=== PATIENT | male | born 1975 | race Caucasian/White ===

== ENCOUNTER 2023-02-09 08:52 | Emergency (ER) | payer OTHER, SELFPAY ==
--- NOTE | ~2023-02-09 | XR_ITS ---
EXAMINATION: XR finger 5th RT min 2V DATE: 02/09/2023 09:13 INDICATION: Right hand fifth digit injury. TECHNIQUE: 3 views of right hand fifth digit were obtained. COMPARISON: None. FINDINGS: There is a comminuted fracture of tuft of fifth distal phalanx. The main distal fracture fr agment demonstrates 1 mm palmar displacement and 1 mm radial displacement. Joint spaces are normal. IMPRESSION: 1. Comminuted fracture of tuft of fifth distal phalanx. Reviewed, dictated and finalized at location E.
[2023-02-09 08:56] VITALS: BP 153/85; PULSE 94; RESP 16; TEMP 36.8; O2SAT 99
--- NOTE | 2023-02-09 09:22 | ED.WOUNDLAC ---
HPI - Wound/Laceration General Chief Complaint: Wound/Laceration Stated Complaint: right pinky injury Time Seen by Provider: 02/09/23 09:01 History of Present Illness HPI narrative: 48-year-old male reports for evaluation after a injury to his right fifth finger that occurred approximately 4 hours ago at work. Patient states he works at [employer] and was moving things around when a keg fell approximately 12 feet, landing on his right fifth finger. He reports with a laceration and mild bleeding and pain to the end of his fifth finger. Tetanus is not up-to-date. Denies other injuries or pain. He took a Sheldon 10 around 5 AM this morning which she is prescribed for back pain. Related Data Allergies Allergy/AdvReac Type Severity Reaction Status Date / Time Penicillins Allergy Unknown Verified 02/09/23 08:53 Review of Systems Review of Systems: CONSTITUTIONAL: Denies fever, chills EYES: Denies visual changes, redness, or discharge. ENT: Denies rhinorrhea, congestion, sore throat, or otalgia. CARDIOVASCULAR: Denies chest pain, palpitations, or edema. RESPIRATORY: Denies cough or dyspnea. GASTROINTESTINAL: Denies abdominal pain, nausea, vomiting, or diarrhea. GENITOURINARY: Denies dysuria or hematuria. SKIN: See HPI MUSCULOSKELETAL: See HPI NEUROLOGIC: Denies headache, numbness, dizziness, or weakness. PSYCHIATRIC: Denies anxiety or depression. Exam Narrative: GENERAL: Well-appearing, in no acute distress. HEAD: Normocephalic NECK: Supple. CHEST: No respiratory distress. Clear to auscultation, no adventitious breath sounds. HEART: Regular rate and rhythm. No murmur heard. Normal peripheral pulses. EXTREMITIES: RUE: Tenderness from the PIP to the distal finger. Subungual hematoma with blood oozing out of the proximal nail fold. The entirety of the nail is intact. The proximal nail has dislodge from the nail fold and is sitting superior to the nail fold. 2 small superficial abrasions proximal the nail on the dorsum of the finger. No other lacerations or abrasions. Full ROM of finger. No tenderness to remainder of finger or hands. Sensation intact. Cap refill <2. Radial pulse 2+. SKIN: See extremity exam NEURO: No focal deficits. Alert and oriented x3. PSYCH: Normal mood and affect. Course Vital Signs Vital signs: Vital Signs Temperature 98.2 F 02/09/23 08:56 Pulse Rate 94 02/09/23 08:56 Respiratory Rate 16 02/09/23 08:56 Blood Pressure 153/85 H 02/09/23 08:56 Pulse Oximetry 99 02/09/23 08:56 Oxygen Delivery Room Air 02/09/23 08:56 Temperature 98.2 F 02/09/23 08:56 Pulse Rate 94 02/09/23 08:56 Respiratory Rate 16 02/09/23 08:56 Blood Pressure 153/85 H 02/09/23 08:56 Pulse Oximetry 99 02/09/23 08:56 Oxygen Delivery Room Air 02/09/23 08:56 MDM - Wound/Laceration MDM Narrative Medical decision making narrative: 48-year-old male reports for evaluation for a right fifth finger injury that occurred approximately 4 hours prior to arrival. See HPI for further history. Vitals are stable other than mildly elevated blood pressure. Exam is significant for the above. He is neurovascularly intact. Tetanus updated. X-ray obtained showing a comminuted fracture of the tuft of the fifth distal phalanx. Digital block performed and finger irrigated extensively with normal saline. I was able to relocate the proximal nail into the proximal nail fold and applied 1 suture to stabilize it. No complications. The subungual hematoma adequately drained through the proximal dislodged nail prior to procedure. Wound dressed and patient placed in a finger splint. I discussed the case with hand surgeon, Dr. Soler, who agrees to have the patient follow up and to start Keflex. Patient updated and first dose of Keflex provided here. Strict ED return precautions discussed. He is agreeable with the plan and verbalized understanding. Discharged in stable condition. Medical Records Attesta
[2023-02-09] MEDS: TETANUS,DIPHTHERIA,AC PERTUSSIS ADULT (0.5 ML) BOOSTRIX IM (10:12)
[2023-02-09] MEDS: CEPHALEXIN 500 MG CAPSULE (10:12)
[2023-02-09] MEDS: LIDOCAINE HCL 1% LOCAL INJ 10 ML VIAL INFILTRATE (10:12)
== END 2023-02-09 10:16 | disposition home or self-care (01) ==
PROVIDERS: Emergency Provider Physician Assistant
DX: S62.636B Displaced fracture of distal phalanx of right little finger, initial encounter for open fracture (principal); Z23 Encounter for immunization; W20.8XXA Other cause of strike by thrown, projected or falling object, initial encounter
CPT/HCPCS: 29130; 73140; 90471; 90715; 99284; A9270

== ENCOUNTER 2023-04-01 06:46 | Emergency (ER) | payer OTHER, SELFPAY ==
[2023-04-01] VITALS (30 sets, daily range): BP systolic 70–136; BP diastolic 34–119; PULSE 66–85; RESP 11–26; TEMP 36.4; O2SAT 90–100
--- NOTE | ~2023-04-01 | CT_ITS ---
EXAMINATION: CT brain wo con DATE: 04/01/2023 08:37 INDICATION: Head injury. Sudden onset of dizziness. History of vertigo. TECHNIQUE: Computed tomography (CT) of the head was performed without intravenous contrast. The mA wa s adjusted according to patient size. Iterative reconstruction technique was employed. Exam dose: 60 5.33 mGy-cm total exam DLP. COMPARISON: None FINDINGS: Bilateral carotid siphon internal carotid artery calcifications are noted. No intracranial mass lesion or hemorrhage or cerebrovascular accident is detected. No midline shift or mass effect. Normal ventricular size. No subdural or epidural hematoma is detected. No fracture or bone destruction of the cranial vault. The mastoid air cells and included paranasal si nuses are unremarkable other than an opacified posterior right ethmoid air cell. IMPRESSION: Cerebral atherosclerosis No acute intracranial finding or skull fracture Reviewed, dictated and finalized at Location A. Reviewed, dictated and finalized at location A. ION ARTIST
--- NOTE | ~2023-04-01 | XR_ITS ---
XR ankle LT 2V DATE: 04/01/2023 08:08 INDICATION: Fracture dislocation of left ankle; post reduction examination TECHNIQUE: AP and crosstable lateral views COMPARISON: 03/29 prereduction left ankle radiographs FINDINGS: There is reduction of the lateral tibiotalar dislocation. There is near-anatomic position of the posterior malleolar fracture of the distal tibia. There is a comminuted fracture the mid shaft of the fibula with one cortical width anterolateral disp lacement. IMPRESSION: Reduction of lateral tibiotalar dislocation Posterior malleolar and mid fibular shaft fractures Reviewed, dictated and finalized at location A. REPAIRER
--- NOTE | ~2023-04-01 | XR_ITS ---
XR ankle LT 2V DATE: 04/01/2023 07:13 INDICATION: Left ankle deformity TECHNIQUE: 3 views COMPARISON: None FINDINGS: There is an anteriorly displaced apex anteriorly angulated comminuted fracture of the mid f ibular shaft with large intermediate butterfly fragment. There is lateral dislocation of the tibiotalar joint and fracture of the distal tibia including poste rior superiorly displaced posterior malleolar fracture. IMPRESSION: Comminuted fracture of midshaft of fibula with anterior displacement and apex anterior an gulation Lateral dislocation at the tibiotalar joint Superiorly displaced posterior malleolar fracture Reviewed, dictated and finalized at location A. H REPAIR PERSON IMPRESSION: Comminuted fracture of midshaft of fibula with anterior displacemen t and apex anterior angulation Lateral dislocation at the tibiotalar joint Superiorly displaced posterior malleolar fracture
--- NOTE | ~2023-04-01 | XR_ITS ---
XR tibia fibula LT 2V DATE: 04/01/2023 08:08 INDICATION: Postoperative reduction examination TECHNIQUE: AP and lateral views COMPARISON: 04/01/2023 left ankle prereduction radiographs FINDINGS: There is a comminuted fracture of the midshaft of the fibula with one cortical width or les s anterolateral displacement. There is reduction of the lateral tibiotalar dislocation. There is an approximately 4.5 mm superiorly displaced posterior malleolar distal tibial fracture. IMPRESSION: Incomplete reduction of lateral tibiotalar dislocation Comminuted mid shaft fracture fibula with minimal displacement or angulation 4 mm superiorly displaced posterior malleolar distal tibial fracture Reviewed, dictated and finalized at location A. OR ENGINEERING TECHNICIAN
--- NOTE | 2023-04-01 06:48 | ECG_ITS ---
Measurements Intervals [place] Rate: 78 P: 40 TX: 160 QRS: 24 QRSD: 98 T: 18 QT: 361 QTc: 413 Interpretive Statements SINUS RHYTHM POSSIBLE RIGHT VENTRICULAR CONDUCTION DELAY [RSR (QR) IN V1/V2] NO PREVIOUS ECG AVAILABLE FOR COMPARISON Electronically Signed On 04-01-2023 9:09:58 GREEN BUILDING ARCHITECT by Michelle Campbell M.D.
--- NOTE | 2023-04-01 06:49 | ED.SYNCOPE ---
HPI - Syncope General Chief Complaint: Syncope <Gregg Hardin MD - Last Filed: 04/06/23 07:09> Stated Complaint: Syncopal, ankle deformity <Gregg Hardin MD - Last Filed: 04/06/23 07:09> Time Seen by Provider: 04/01/23 06:48 <Gregg Hardin MD - Last Filed: 04/06/23 07:09> Source: patient, EMS and RN notes reviewed <Gina Rendon MD - Last Filed: 04/01/23 17:05> Mode of arrival: EMS <Gina Rendon MD - Last Filed: 04/01/23 17:05> History of Present Illness HPI narrative: 48-year-old male present to the emergency department for evaluation after having a syncopal episode and injuring his left ankle. Patient was at work when he had onset of this single episode. Patient did fall strike his head and injured his left ankle. <Gregg Hardin MD - Last Filed: 04/06/23 07:09> 48-year-old male present to the emergency department for evaluation after having dizziness and injuring his left ankle. Patient was at work when he states he stood up and this caused him to get dizzy. He states he had some vertigo and this caused him to fall. Patient did fall striking his head but he denies LOC, and injured his left ankle. He has left ankle deformity. He denies associated chest pain, shortness of breath, nausea, vomiting, diarrhea, abdominal pain. HE has mild headache from striking his head. HE denies dizziness at this time. <Gina Rendon MD - Last Filed: 04/01/23 17:05> Related Data Allergies/Adverse Reactions: Allergies Allergy/AdvReac Type Severity Reaction Status Date / Time Penicillins Allergy Unknown Verified 03/17/23 08:33 <Gregg Hardin MD - Last Filed: 04/06/23 07:09> Review of Systems Constitutional: Constitutional: Denies weakness <Gina Rendon MD - Last Filed: 04/01/23 17:05> Cardiovascular: Cardiovascular: Denies syncope, Denies rapid heart rate, Denies irregular heart rhythm, Denies leg edema and Denies dyspnea <Gina Rendon MD - Last Filed: 04/01/23 17:05> Respiratory: Respiratory: Denies chest congestion, Denies hemoptysis, Denies excessive phlegm production and Denies dyspnea <Gina Rendon MD - Last Filed: 04/01/23 17:05> Gastrointestinal: Gastrointestinal: Denies abdominal pain, Denies hematochezia, Denies diarrhea and Denies vomiting <Gina Rendon MD - Last Filed: 04/01/23 17:05> Genitourinary: Genitourinary: Denies hematuria, Denies dysuria, Denies penile discharge and Denies testicular pain <Gina Rendon MD - Last Filed: 04/01/23 17:05> Musculoskeletal: Musculoskeletal: Reports arthralgias (left ankle), Reports joint swelling, Denies loss of height and Denies muscle weakness <Gina Rendon MD - Last Filed: 04/01/23 17:05> Neurologic: Reports dizziness, Denies syncope, Reports headache(s), Denies focal weakness and Denies weakness <Gina Rendon MD - Last Filed: 04/01/23 17:05> [facility] Past Medical History Medical History: Medical History (Updated 04/02/23 @ 00:00 by Hira Helms) Chronic pain syndrome Diabetes mellitus Hypertension Sleep apnea <Gregg Hardin MD - Last Filed: 04/06/23 07:09> Surgical History Surgical History: Surgical History (Updated 04/01/23 @ 09:40 by Gina Rendon MD) H/O removal of cyst <Gregg Hardin MD - Last Filed: 04/06/23 07:09> Social History Social History: Social History Smoking status: Never smoker <Gregg Hardin MD - Last Filed: 04/06/23 07:09> Exam Narrative: APPEARANCE: Pale and diaphoretic upon arrival HEAD: normocephalic, atraumatic. EYES: PERRLA/EOMI, conjunctivae clear. NOSE: Normal no drainage THROAT: Pharynx clear, no exudate. NECK: Supple. No adenopathy, no masses. RESPIRATORY: Airway patent, respirations nonlabored. Clear to auscultation bilaterally, no rales, rhonchi, wheezing. CARDIOVASCULAR: Regular rate and rhythm without murmurs rubs or gal
[2023-04-01 07:02] LABS: Glucose Point of Care 183 mg/dl (65-105)
[2023-04-01 07:03] LABS: Basophils Absolute Auto 0.1 K/mm3 (0.0-0.1); Basophils Percent Auto 0.5 % (0.2-1.2); Eosinophils Absolute Auto 0.2 K/mm3 (0-0.3); Eosinophils Percent Auto 0.9 % (0-4.4); Hematocrit 40.2 % (42.0-52.0); Hemoglobin 13.3 g/dL (14.0-18.0); Immature Granulocyte Absolute 0.11 K/mm3 (0.00-0.031); Immature Granulocyte Percent A 0.6 % (0-0.5); Lymphocytes Absolute Auto 1.43 K/mm3 (0.9-3.2); Lymphocytes Percent Auto 8.2 % (18.3-44.2); Mean Corpuscular HGB Conc 33.1 g/dl (32-36); Mean Corpuscular Hemoglobin 27.9 pg (26-34); Mean Corpuscular Volume 84.3 fl (80-100); Mean Platelet Volume 9.4 fl (7.4-10.4); Monocytes Percent Auto 5.7 % (2.6-8.5); Neutrophils Absolute Auto 14.6 K/mm3 (1.3-6.7); Neutrophils Percent Auto 84.1 % (45.5-73.1); Platelet Count Result 288 k/mm3 (150-375); Red Blood Count 4.77 M/mm3 (4.6-6.20); Red Cell Distribution Width 13.8 % (11.5-14.5); White Blood Count 17.4 K/mm3 (4.5-10.0)
[2023-04-01] MEDS: SODIUM CHLORIDE 0.9% IV 1,000 ML 999 ML ×2 (07:03→08:03)
[2023-04-01 07:45] LABS: Alanine Aminotransferase 78 U/L (6-50); Albumin Level 4.2 g/dL (3.5-5.1); Alkaline Phosphatase 73 U/L (38-126); Anion Gap 13 mmol/L (8-16); Aspartate Amino Transferase 47 U/L (17-59); Bilirubin,Total 0.6 mg/dL (0.2-1.3); Blood Urea Nitrogen 28 mg/dL (9-20); Calcium 9.3 mg/dL (8.4-10.2); Carbon Dioxide 21 mmol/L (22-30); Chloride 102 mmol/L (98-107); Estimated CRCL calculation 50 ml/min; Estimated Glomerular Filt Rate 27; Glucose 176 mg/dL (65-110); Potassium 4.3 mmol/L (3.4-5.0); Sodium 136 mmol/L (137-145)
[2023-04-01 07:49] LABS: Influenza A QL RT-PCR Negative (Negative); Influenza B QL RT-PCR Negative (Negative); RSV RNA, RT-PCR Negative (Negative); SARS-CoV-2 RNA PCR Negative (Negative)
--- NOTE | 2023-04-01 08:55 | PC.NURSE ---
Left reduced by EDP without sedation. Left leg posterior splint placed on by verbal order from EDP.
[2023-04-01] MEDS: HYDROcodone/acetaminophen (*CRX) 10-325 MG TABLET 1 TAB PO (10:04)
== END 2023-04-01 10:15 | disposition left against medical advice (07) ==
PROVIDERS: Emergency Medicine; Emergency Provider General Practice
DX: S82.402A Unspecified fracture of shaft of left fibula, initial encounter for closed fracture (principal); S82.892A Other fracture of left lower leg, initial encounter for closed fracture; N17.9 Acute kidney failure, unspecified; Z20.822 Contact with and (suspected) exposure to COVID-19; I10 Essential (primary) hypertension; E11.9 Type 2 diabetes mellitus without complications; G47.30 Sleep apnea, unspecified; W19.XXXA Unspecified fall, initial encounter
CPT/HCPCS: 27768; 36415; 70450; 73590; 73600; 80053; 82948; 85025; 87637; 93005; 99285; A9270; J2704; J7030

== ENCOUNTER 2023-05-22 08:25 | Emergency (ER) | payer OTHER, SELFPAY ==
[2023-05-22 08:28] VITALS: BP 190/102; PULSE 88; RESP 16; TEMP 36.4; O2SAT 100
--- NOTE | 2023-05-22 12:26 | ED.WOUNDLAC ---
HPI - Wound/Laceration General Chief Complaint: Wound/Laceration Stated Complaint: L leg post op problem? or spider bite? Time Seen by Provider: 05/22/23 12:00 History of Present Illness HPI narrative: 48-year-old male presenting with possible spider bite. Patient states that he had surgery on his left ankle about 6 weeks ago. He has been healing well until the last several days he developed slightly worsening swelling as well as some redness. States that he has some scabs on the lateral aspect of the ankle, he is unsure if these were surgical incisions. His fiancee became concerned that they looked like a brown recluse bite. He called his surgeon who started him on Keflex. States that he has been taking this for the last 2 days and the swelling and redness has started to improve. States that there has been a little bit of white cloudy drainage. He denies fevers or chills, nausea vomiting, or other systemic symptoms. No numbness or weakness. Related Data Allergies Allergy/AdvReac Type Severity Reaction Status Date / Time Penicillins Allergy Unknown Verified 05/22/23 08:32 Review of Systems Review of Systems: All systems reviewed & are unremarkable except as noted in HPI and below PMFSH Past Medical History Medical History Chronic pain syndrome Diabetes mellitus Hypertension Sleep apnea Surgical History Surgical History H/O removal of cyst Family History Family History Unknown Hypertension Depression Diabetes mellitus Neuropathy Arthritis Social History Social History Smoking status: Current every day smoker Tobacco type: e-cigarettes/vaping Alcohol intake: never Gender identity (if verbalized by the patient): Male Exam Narrative: GENERAL: Nontoxic, no acute distress, pleasant cooperative HEAD: Normocephalic, atraumatic. EYES: PERRLA and EOMI. ENT: Grossly unremarkable NECK: Supple. CHEST: No respiratory distress. HEART: Regular rate and rhythm EXTREMITIES: Normal range of motion. SKIN: Warm, dry. Left ankle with two small scabs laterally with mild erythema extending to upper foot, no fluctuance or induration, no drainage, DP pulses 2+ NEURO: No focal deficits. Alert and oriented x3. PSYCH: Normal mood and affect. Course Vital Signs Vital signs: Vital Signs Temperature 97.6 F 05/22/23 08:28 Pulse Rate 88 05/22/23 08:28 Respiratory Rate 16 05/22/23 08:28 Blood Pressure 190/102 H 05/22/23 08:28 Pulse Oximetry 100 05/22/23 08:28 Temperature 97.6 F 05/22/23 08:28 Pulse Rate 88 05/22/23 08:28 Respiratory Rate 16 05/22/23 08:28 Blood Pressure 190/102 H 05/22/23 08:28 Pulse Oximetry 100 05/22/23 08:28 MDM - Wound/Laceration MDM Narrative Medical decision making narrative: 48-year-old male presenting with redness and swelling in his left ankle. Vitals stable. Exam remarkable for the above. No evidence of abscess or deeper infection. Consistent with cellulitis. States that he has had some improvement after starting the Keflex. States that he did have some white cloudy drainage over the weekend. Will add additional coverage to doxycycline. Patient sees his surgeon in 2 days, advised that he keep this appointment. Appropriate return precautions given. Discharged in stable condition. Differential Diagnosis Differential diagnosis: Likely other (Cellulitis, abscess, insect bite) Medical Records Attestation: I reviewed the patient's medical records. Critical Care Time Critical Care Time Critical Care Time: No Discharge Plan Discharge Clinical Impression: Cellulitis Patient Disposition: Home, Self-Care Condition: Stable Instructions: Antibiotic Form, Cellulitis (ED) Additional Instructions
[2023-05-22] MEDS: DOXYCYCLINE HYCLATE 100 MG TABLET PO (12:34)
== END 2023-05-22 12:40 | disposition home or self-care (01) ==
PROVIDERS: Emergency Provider Emergency Medicine
DX: L03.116 Cellulitis of left lower limb (principal); E11.9 Type 2 diabetes mellitus without complications; I10 Essential (primary) hypertension; G47.30 Sleep apnea, unspecified; G89.4 Chronic pain syndrome; F17.290 Nicotine dependence, other tobacco product, uncomplicated
CPT/HCPCS: 99283; A9270

== ENCOUNTER 2023-07-14 15:50 | Emergency (ER) | payer OTHER, SELFPAY ==
--- NOTE | ~2023-07-14 | XR_ITS ---
EXAM: XR ankle LT min 3V DATE: 07/14/2023 16:45 HISTORY: infection post op r/o osteomyelitis . COMPARISON: 04/06/2023. FINDINGS: Normal mineralization. Screw and plate fixation of the syndesmosis and distal fibula. The 2 superior syndesmotic screws are fractured. 4 mm hardware lucency about the tibial component of the second syndesmotic screw (numbered superior to inferior). Periosteal elevation at the tip of the thir d syndesmotic screw. 3 mm perihilar hardware lucency at the inferior syndesmotic screw, with minimal periosteal elevation at the screw tip. No new acute fracture. Comminuted distal fibular fracture, por tions of which are unfused. Medial malleolus avulsion fracture fragments. Medial gutter widening. No lytic or blastic lesion. Moderate degenerative change at the tibiotalar joint and midfoot. Achilles e nthesopathy. No erosion or periosteal change. Soft tissues within normal limits. IMPRESSION: Screw and plate fixation of the distal fibula and syndesmosis with fractured superior syn desmotic screws. Multiple syndesmotic screws demonstrate periosteal changes and perihilar hardware isabell cencies as can be seen with loosening or infection. Persistent medial gutter widening suggestive of ligamentous injury. Questionable fusion of the comminuted distal fibular fracture. Reviewed, dictated and finalized at location K. IMPRESSION: Screw and plate fixation of the distal fibula and syndesmosis with fractured superior syndesmotic screws. Multiple syndesmotic screws demonstrate periosteal changes and perihilar hardware lucencies as can be seen with looseni ng or infection. Persistent medial gutter widening suggestive of ligamentous injury. Questionable fusion of the comminuted distal fibular fracture.
[2023-07-14 15:54] VITALS: BP 143/83; PULSE 100; RESP 18; TEMP 36.9; O2SAT 100
--- NOTE | 2023-07-14 15:56 | ED.GENADULT ---
HPI - General Adult General Chief complaint: Unspecified <Dave Hawley APRN - Last Filed: 07/14/23 16:15> Stated complaint: infection from surgery <Dave Hawley APRN - Last Filed: 07/14/23 16:15> Time Seen by Provider: 07/14/23 15:56 <Dave Hawley APRN - Last Filed: 07/14/23 16:15> Focused HPI: Lino is a 48-year-old male patient presenting to the emergency room today with complaints of possible infection and the left ankle. He reports he had a surgery completed on May [address] Bhatt at the [facility]-had screws placed and the left ankle for ankle dislocation fracture. Is having redness and drainage coming from the left lateral ankle today. Has been on doxycycline for approximately 2 and half weeks for a infection. States that it looks as though the infection is getting worse. Denies any fever, chills, or body aches. States he has had decrease in appetite and he has been having bloody diarrhea stools. Denies any abdominal pain but did have 1 vomiting episode at 10:00 a.m. this morning and did not have blood and his emesis at that time. Feels bloated. Is wearing a walking boot at the time of visit General: Well-developed, morbidly obese, in no apparent distress Head: Normocephalic, atraumatic. Cardio: Regular rate and rhythm, s1 and s2 normal, no murmur appreciated. Resp: Clear to auscultation bilaterally, no rhonchi, rales, wheezing or rubs. Abdomen: Soft, pliable, distended per patient, bowel sounds present in all quadrants, non-tender to palpation, no organomegly, no CVAT tenderness. Musculoskeletal: No deformity, redness and swelling noted to the left lateral ankle, lower surgical incision dehisced and bloody drainage noted over the inferior portion of the surgery incision, mild tender to palpation, erythema noted with palpation, grossly normal range of motion, muscle strength strong and equal, peripheral pulse strong, no edema, no cyanosis, normal gait and station Patient screened in triage and initial orders placed. Additional care and disposition to be based upon diagnostic testing and treatment. <Dave Hawley APRN - Last Filed: 07/14/23 16:15> Source: patient <Dave Hawley APRN - Last Filed: 07/14/23 16:15> Mode of arrival: ambulatory <Dave Hawley APRN - Last Filed: 07/14/23 16:15> Limitations: no limitations <Dave FloresmeenaWOON - Last Filed: 07/14/23 16:15> Related Data Allergies/adverse reactions: Allergies Allergy/AdvReac Type Severity Reaction Status Date / Time Penicillins Allergy Unknown Verified 05/22/23 08:32 <Dave FloresmeenaWOON - Last Filed: 07/14/23 16:15> [facility] Past Medical History Medical History: Medical History Chronic pain syndrome Diabetes mellitus Hypertension Sleep apnea <Dave Markmeena VOCATIONAL SERVICES SPECIALIST - Last Filed: 07/14/23 16:15> Surgical History Surgical History: Surgical History H/O removal of cyst <Dave Markmeena VOCATIONAL SERVICES SPECIALIST - Last Filed: 07/14/23 16:15> Family History Family History: Family History Unknown Hypertension Depression Diabetes mellitus Neuropathy Arthritis <Davetreasure Floresmeena VOCATIONAL SERVICES SPECIALIST - Last Filed: 07/14/23 16:15> Social History Social History: Social History Smoking status: Current every day smoker Tobacco type: e-cigarettes/vaping Alcohol intake: never Gender identity (if verbalized by the patient): Male <Dave Hawley VOCATIONAL SERVICES SPECIALIST - Last Filed: 07/14/23 16:15> Comments At the time of my signature, I reviewed and agree with the nursing past medical, surgical, social, and family history. There is no relevant family history pertinent to the patient complaint. <Cassandra Singer
[2023-07-14 16:30] LABS: Basophils Percent Auto 0.2 % (0.2-1.2); Eosinophils Absolute Auto 0.1 K/mm3 (0-0.3); Eosinophils Percent Auto 0.4 % (0-4.4); Hematocrit 37.4 % (42.0-52.0); Hemoglobin 12.6 g/dL (14.0-18.0); Immature Granulocyte Absolute 0.21 K/mm3 (0.00-0.031); Immature Granulocyte Percent A 1.3 % (0-0.5); Lymphocytes Absolute Auto 1.12 K/mm3 (0.9-3.2); Lymphocytes Percent Auto 6.9 % (18.3-44.2); Mean Corpuscular HGB Conc 33.7 g/dl (32-36); Mean Corpuscular Hemoglobin 26.4 pg (26-34); Mean Corpuscular Volume 78.4 fl (80-100); Mean Platelet Volume 9.7 fl (7.4-10.4); Monocytes Percent Auto 6.1 % (2.6-8.5); Neutrophils Absolute Auto 13.7 K/mm3 (1.3-6.7); Neutrophils Percent Auto 85.1 % (45.5-73.1); Platelet Count Result 331 k/mm3 (150-375); Red Blood Count 4.77 M/mm3 (4.6-6.20); Red Cell Distribution Width 13.1 % (11.5-14.5); White Blood Count 16.1 K/mm3 (4.5-10.0)
[2023-07-14 16:40] LABS: Lactic Acid Reflex 1.9 mmol/L (0.7-2.0)
[2023-07-14 16:41] LABS: INR 1.1; Prothrombin Time 14.7 Seconds (11.1-14.7)
[2023-07-14 16:42] LABS: Partial Thromboplastin Time 29.2 Seconds (22.3-36.8)
[2023-07-14 16:48] LABS: Alanine Aminotransferase 33 U/L (6-50); Albumin Level 4.1 g/dL (3.5-5.1); Alkaline Phosphatase 152 U/L (38-126); Anion Gap 13 mmol/L (4-12); Aspartate Amino Transferase 21 U/L (17-59); Bilirubin,Total 0.6 mg/dL (0.2-1.3); Blood Urea Nitrogen 29 mg/dL (9-20); Calcium 9.6 mg/dL (8.4-10.2); Carbon Dioxide 24 mmol/L (22-30); Chloride 88 mmol/L (98-107); Estimated CRCL calculation 131 ml/min; Estimated Glomerular Filt Rate > 60; Glucose 601 mg/dL (65-110); Potassium 4.4 mmol/L (3.4-5.0); Sodium 125 mmol/L (137-145)
[2023-07-14] MEDS: SODIUM CHLORIDE 0.9% IV 1,000 ML 999 ML IV CONT (17:33)
[2023-07-14 18:15] VITALS: BP 131/86; PULSE 91; RESP 18; O2SAT 100
[2023-07-14] MEDS: SODIUM CHLORIDE 0.9% IV 2,000 ML 999 ML IV CONT (18:57)
[2023-07-14] MEDS: ceFAZolin 2 GM/D5W 50 ML 2 GM/50 ML BAG IVPB (18:57)
--- NOTE | 2023-07-14 20:34 | PC.NURSE ---
pt declined 3rd liter of fluids as well as transportation to [facility] in [place], [place]. fluids were returned and antibiotics sent back to pharmacy. pt signed AMA form for declining transport.
[2023-07-14 20:37] VITALS: BP 143/89; PULSE 92; RESP 18; TEMP 37.2; O2SAT 100
== END 2023-07-14 20:35 | disposition short-term general hospital (02) ==
PROVIDERS: Nurse Practitioner Family; Emergency Provider Emergency Medicine
DX: T81.49XA Infection following a procedure, other surgical site, initial encounter (principal); E11.65 Type 2 diabetes mellitus with hyperglycemia; E66.01 Morbid (severe) obesity due to excess calories; Z68.41 Body mass index [BMI] 40.0-44.9, adult; I10 Essential (primary) hypertension; G47.30 Sleep apnea, unspecified; F17.290 Nicotine dependence, other tobacco product, uncomplicated
CPT/HCPCS: 36415; 73610; 80053; 83605; 85025; 85610; 85730; 86850; 86900; 86901; 87040; 87070; 87181; 87205; 96361; 96365; 99285; J0690; J7030

== ENCOUNTER 2024-01-30 15:17 | Emergency (ER) | payer OTHER, SELFPAY ==
--- NOTE | ~2024-01-30 | XR_ITS ---
HISTORY: injury COMPARISON: None TECHNIQUE: 3 views of the right foot FINDINGS: Acute comminuted minimally displaced fracture of the distal shafts of the second and third metatarsal s. Dorsal soft tissue swelling is present. Ossification of the insertion of the Achilles tendon is present. Calcaneal spur is noted IMPRESSION: Acute comminuted minimally displaced fracture of the distal shafts of the second and third metatarsal s with overlying soft tissue swelling, as detailed above. Reviewed, dictated and finalized at location A. IMPRESSION: Acute comminuted minimally displaced fracture of the distal shafts of the secon d and third metatarsals with overlying soft tissue swelling, as detailed above.
--- NOTE | ~2024-01-30 | XR_ITS ---
XR knee LT min 4V Ordering provider: Crista Garcia PA-C History: . left knee pain, fall . Comparison: None. FINDINGS: BONES: No acute fracture or dislocation. JOINT SPACES: Normal. SOFT TISSUES: Normal. IMPRESSION: No acute osseous abnormality left knee. Reviewed, dictated and finalized at location A.
[2024-01-30 15:21] VITALS: BP 177/84; PULSE 100; RESP 20; TEMP 36.4; O2SAT 100
--- NOTE | 2024-01-30 15:43 | ED.FALL ---
HPI - Fall General Chief Complaint: Fall Stated Complaint: fall, lE injuries Time Seen by Provider: 01/30/24 15:29 Source: patient Mode of arrival: wheelchair Limitations: no limitations History of Present Illness HPI Narrative: This is a 49 year old male that presents to the ER after an injury 2 days ago. Reports he got his foot caught in a wheelchair ramp. Reports this caused him to fall forward. He did not hit his head or lose consciousness. Reports right foot pain and swelling. Also reports left knee pain. Denies decreased ROM or numbness. Related Data Allergies Allergy/AdvReac Type Severity Reaction Status Date / Time Penicillins Allergy Unknown Verified 01/30/24 15:25 Review of Systems Review of Systems: CONSTITUTIONAL: Denies fever MUSCULOSKELETAL: Reports joint pain, and myalgia. NEUROLOGIC: Denies numbness, or weakness. All systems reviewed & are unremarkable except as noted in HPI and below PMFSH Past Medical History Medical History Chronic pain syndrome Diabetes mellitus Hypertension Sleep apnea Surgical History Surgical History H/O removal of cyst Family History Family History Unknown Hypertension Depression Diabetes mellitus Neuropathy Arthritis Social History Social History Smoking status: Current every day smoker Tobacco type: e-cigarettes/vaping Alcohol intake: never Gender identity (if verbalized by the patient): Male Exam Narrative: GENERAL: Well-appearing, well-nourished, and in no acute distress. HEAD: Normocephalic, atraumatic. EYES: EOMI. EXTREMITIES: Normal range of motion. No obvious deformity. Moderate edema about the right foot. Normal DP pulses. Normal sensation SKIN: Warm, dry, no rash. NEURO: No focal deficits. Alert and oriented x3. PSYCH: Normal mood and affect Course Course Emergency Course: Patient updated on his workup. Reports he has a orthopedics doctor he will follow up with Vital Signs Vital signs: Vital Signs Temperature 97.5 F L 01/30/24 15:21 Pulse Rate 100 01/30/24 15:21 Respiratory Rate 20 01/30/24 15:21 Blood Pressure 177/84 H 01/30/24 15:21 Pulse Oximetry 100 01/30/24 15:21 Oxygen Delivery Room Air 01/30/24 15:21 Temperature 97.5 F L 01/30/24 15:21 Pulse Rate 100 01/30/24 15:21 Respiratory Rate 20 01/30/24 15:21 Blood Pressure 177/84 H 01/30/24 15:21 Pulse Oximetry 100 01/30/24 15:21 Oxygen Delivery Room Air 01/30/24 15:21 Procedures Orthopedic Splinting/Casting Injury #1: Splinting/Casting Date: 01/30/24 Splinting/Casting Time: 17:34 Side: right Lower Extremity Injury Location: foot Lower Extremity Immobilizer: posterior splint Splint: customized in ED OCL: short leg Pre-Procedure Neuro Vascular Exam: normal Post-Procedure Neuro Vascular Exam: normal Other Orthopedic Equipment: other (patient has a wheel chair) MDM - Fall MDM Narrative Medical decision making narrative: Patient presents to the emergency department after a fall 2 days ago with right foot pain in left knee pain. Patient is neurologically intact. Right foot x-ray shows 2nd and 3rd metatarsal fractures. Left knee x-ray without acute osseous abnormalities. Patient placed in a short-leg posterior. Reports he has an orthopedics doctor he will follow-up with. He was given warnings to return to the ER Differential Diagnosis Differential diagnosis: Likely other ( knee sprain, foot fracture, ankle fracture) Imaging Data Radiologist's impression: ITS Impressions Foot X-Ray 01/30/24 16:13 IMPRESSION: Acute comminuted minimally displaced fracture of the distal shafts of the second and third metatarsals with overlyin
[2024-01-30] MEDS: HYDROcodone/acetaminophen (*CRX) 5-325 MG TABLET 1 TAB PO (15:46)
[2024-01-30] MEDS: KETOROLAC 30 MG/ML VIAL (*BKC) IM (16:53)
--- NOTE | 2024-01-30 17:40 | PC.NURSE ---
Report given to GARETH Menendez
[2024-01-30 18:25] VITALS: BP 143/69; PULSE 95; RESP 16; O2SAT 97
== END 2024-01-30 18:28 | disposition home or self-care (01) ==
PROVIDERS: Emergency Provider Physician Assistant
DX: S92.321A Displaced fracture of second metatarsal bone, right foot, initial encounter for closed fracture (principal); S92.331A Displaced fracture of third metatarsal bone, right foot, initial encounter for closed fracture; I10 Essential (primary) hypertension; E11.9 Type 2 diabetes mellitus without complications; G47.30 Sleep apnea, unspecified; G89.4 Chronic pain syndrome; F17.290 Nicotine dependence, other tobacco product, uncomplicated; W18.39XA Other fall on same level, initial encounter
CPT/HCPCS: 29515; 73564; 73630; 96372; 99284; A9270; J1885

== ENCOUNTER 2024-12-12 19:39 | Emergency (ER) | payer OTHER, SELFPAY ==
--- NOTE | ~2024-12-12 | CT_ITS ---
EXAMINATION: CT BRAIN W/O DATE: 12/12/2024 21:13 INDICATION: Status post fall. Head injury. TECHNIQUE: Computed tomography (CT) of the head was performed without intravenous contrast. The dose-length product was 605.33 mGy-cm. Automated exposure control and iterative reconstruction technique were employed. COMPARISON: No prior studies for comparison. FINDINGS: Normal brain parenchymal volume for age. Normal galicia-white differentiation. No acute intracranial hemorrhage, infarction, mass or mass effect. No ventriculomegaly or midline shift. Midline sagittal images demonstrate a normal corpus callosum, craniovertebral junction and sella turcica. Basilar cisterns are patent. Paranasal sinuses and mastoids are pneumatized. No depressed skull fractures. IMPRESSION: 1. No acute intracranial abnormality. Reviewed, dictated and finalized at location O.
--- NOTE | ~2024-12-12 | XR_ITS ---
XR chest 1V portable INDICATION: Chest pain TECHNIQUE: 2 view chest. FINDINGS: No prior studies for comparison. There is mild bilateral interstitial prominence and peribronchial cuffing. There is no focal consolidation, pleural effusion, or pneumothorax. The cardiomediastinal silhouette is normal. IMPRESSION: 1. Findings most consistent with bronchiolitis versus an atypical or viral pneumonia. Reviewed, dictated and finalized at location O. IMPRESSION: 1. Findings most consistent with bronchiolitis versus an atypical or viral pne tarahgalena.
[2024-12-12 19:58] VITALS: BP 117/93; PULSE 89; RESP 16; TEMP 36.3; O2SAT 93
--- NOTE | 2024-12-12 20:09 | ECG_ITS ---
Test Date: 2024-12-12 20:15:06 Measurements Intervals [place] Rate: 74 P: 47 IL: 143 QRS: 22 QRSD: 100 T: 20 QT: 349 QTc: 387 Interpretive Statements SINUS RHYTHM POSSIBLE RIGHT VENTRICULAR CONDUCTION DELAY [RSR (QR) IN V1/V2] No previous ECG available for comparison Electronically Signed On 12-13-2024 12:24:03 CDT by Phan Van M.D.
[2024-12-12 21:02] LABS: Hematocrit 41.3 % (42.0-52.0); Hemoglobin 12.6 g/dL (14.0-18.0); Immature Granulocyte Percent A 0.6 % (0-0.5); Lymphocytes Absolute Auto 1.47 K/mm3 (0.9-3.2); Mean Corpuscular HGB Conc 30.5 g/dl (32-36); Mean Corpuscular Hemoglobin 24.5 pg (26-34); Mean Corpuscular Volume 80.4 fl (80-100); Nucleated Red Blood Cells Absolute Auto 0.000 K/mm3 (0.0-0.012); Nucleated Red Blood Cells Perc 0.0 % (0.0-0.2); Platelet Count Result 291 k/mm3 (150-375); Red Blood Count 5.14 M/mm3 (4.6-6.20); White Blood Count 12.5 K/mm3 (4.5-10.0)
[2024-12-12 21:13] LABS: Alanine Aminotransferase 21 U/L (6-50); Albumin Level 3.8 g/dL (3.5-5.1); Alkaline Phosphatase 79 U/L (38-126); Anion Gap 8 mmol/L (4-12); Aspartate Amino Transferase 28 U/L (17-59); Bilirubin,Total 0.3 mg/dL (0.2-1.3); Blood Urea Nitrogen 58 mg/dL (9-20); Calcium 8.7 mg/dL (8.4-10.2); Carbon Dioxide 26 mmol/L (22-30); Chloride 103 mmol/L (98-107); Estimated CRCL calculation 40 ml/min; Estimated Glomerular Filt Rate 21; Glucose 121 mg/dL (65-110); Lipase 113 U/L (23-300); Magnesium 2.3 mg/dL (1.6-2.3); Potassium 4.7 mmol/L (3.4-5.0); Sodium 137 mmol/L (137-145); Total Protein 7.2 g/dL (6.3-8.2)
[2024-12-12 21:16] LABS: INR 1.1; Prothrombin Time 13.7 Seconds (11.1-14.7)
[2024-12-12 21:17] LABS: Partial Thromboplastin Time 33.1 Seconds (22.3-36.8)
[2024-12-12 21:25] LABS: Troponin I < 0.012 ng/mL (0.000-0.034)
--- NOTE | 2024-12-12 21:36 | ED_ITS ---
HPI - Fall General Chief Complaint: Fall Stated Complaint: severe muscle spasms, fell in parking lot Time Seen by Provider: 12/12/24 20:15 History of Present Illness HPI Narrative: Patient is a 49-year-old male who presents emergency department this evening complaining of muscle spasms. States that his symptoms started on Monday or Monday with the generalized weakness and muscle spasms. Patient states that him and his glue gold his symptoms and he was concerned for either a silent heart attack or stroke. He is denying any focal weakness, numbness and/or tingling. Denies any active chest pain or shortness of breath, any recent illness, fevers or chills. Denies any additional symptoms or concerns. Related Data Allergies Allergy/AdvReac Type Severity Reaction Status Date / Time Penicillins Allergy Unknown Verified 01/30/24 15:25 Review of Systems 2 Review of Systems: All systems are reviewed and are negative unless stated otherwise in the HPI. [facility] Past Medical History Medical History Chronic pain syndrome Diabetes mellitus Hypertension Sleep apnea Surgical History Surgical History H/O removal of cyst Family History Family History Unknown Hypertension Depression Diabetes mellitus Neuropathy Arthritis Social History Social History Smoking status: Current every day smoker Tobacco type: e-cigarettes/vaping Alcohol intake: never Gender identity (if verbalized by the patient): Male Exam 2 Narrative: General: Alert, awake, afebrile, in no acute distress. HEENT: PERRL, no rhinorrhea, no post nasal drip, oropharynx clear. Neck: Trachea midline, no JVD, no lymphadenopathy. Cardiovascular: Regular rate and rhythm, no murmurs, rubs or gallops, no peripheral edema. Respiratory: Clear to auscultation bilaterally, no tachypnea, no wheezing, no rhonchi, no rubs, no respiratory distress. Abdomen: Soft, nontender, nondistended, no rebound, no guarding, no peritoneal signs. Musculoskeletal: No joint swelling or deformity, normal muscle tone. Skin: No rashes or petechia, no signs of infection. Psychiatric: Alert and oriented, normal behavior and judgment for situation. Neurological: Alert and oriented to person, place, and time. Follows all commands. No focal deficits, speech is clear and fluent. Course Vital Signs Vital signs: Vital Signs Temperature 97.3 F L 12/12/24 19:58 Pulse Rate 89 12/12/24 19:58 Respiratory Rate 16 12/12/24 19:58 Blood Pressure 117/93 H 12/12/24 19:58 Pulse Oximetry 93 12/12/24 19:58 Temperature 97.3 F L 12/12/24 19:58 Pulse Rate 89 12/12/24 19:58 Respiratory Rate 16 12/12/24 19:58 Blood Pressure 117/93 H 12/12/24 19:58 Pulse Oximetry 93 12/12/24 19:58 MDM - Fall MDM Narrative Medical decision making narrative: The patient was evaluated by myself in the emergency department. History is obtained from patient who is an independent historian and physical exam was performed. External medical records were reviewed at this time. IV was established and pertinent tests were ordered. Patient was administered 1 L IV fluid bolus with normal saline. EKG was obtained which revealed sinus rhythm rate of 74 beats per minute, no evidence of acute ischemia. EKG was independently interpreted by me and is currently pending official cardiology read. Laboratory results obtained revealing acute kidney injury with BUN of 58 and a creatinine of 3.2. Patient has no history of chronic kidney disease, last documented creatinine was July of last year and was noted to be 1. Patient was informed of these findings at bedside. Patient confirms that he has not been drinking water and states that he has gone the last couple of days only drinking coffee and tea. Denies any flank pain, any abdominal pain, any nausea or vomiting. At this time patient was administered a 2nd IV fluid bolus with normal saline. Imaging studies obtained included CXR and a CT brain without IV contrast which was independently interpreted by me revealing: IMPRESSION: 1. Findings most consistent with bronchiolitis versus an atypical or viral pneumonia. 2. No acute intracranial abnormality. Differential diagnosis considerations include dehydration, acute kidney injury, electrolyte derangements, acute viral syndrome. Comorbidities impacting this visit include none. I have evaluated and discussed social determinants of health with the patient that could potentially impact subsequent diagnosis and treatment plans. On repeat assessment of the patient, reevaluation revealed that the patient is doing well and is in no acute distress. Patient symptoms have improved since he arrived to our emergency department. Repeat vital signs were all reviewed and noted to be stable. Differential diagnosis and treatment plan were discussed with the patient at bedside. At this time given the patient's elevated creatinine and his acute kidney injury I did recommend inpatient admission for IV hydration, however, patient review stating that he cannot take any time off of work and he needs to get to work. Patient understands the risks including worsening kidney function and kidney failure and states that he will increase his p.o. intake and follow-up with his PCP for repeat kidney function. Patient is sound of mine, alert tenderness to person, place, time and situation and capable of making his own medical decisions. He was informed that he will be signing out against medical advice. All questions were answered to the patient's satisfaction. Patient will follow up with his PCP in 3-5 days. Instructed to maintain his oral hydration by drinking lots of water throughout the day and that he will need to have his blood work specifically his kidney function recheck by his primary care physician in approximately 1 week. Patient was provided with strict return precautions and instructed to return to the emergency department if any new or worsening symptoms develop. The patient was discharged in stable condition. Lab Data 12/12/24 20:39 12/12/24 20:39 Labs: Lab Results 12/12/24 12/12/24 12/12/24 Range/Units 20:15 20:28 20:38 WBC (4.5-10.0) K/mm3 RBC (4.6-6.20) M/mm3 Hgb (14.0-18.0) g/dL Hct (42.0-52.0) % MCV (80-100) fl MCH (26-34) pg MCHC (32-36) g/dl RDW (11.5-14.5) % Plt Count (150-375) k/mm3 MPV (7.4-10.4) fl Immature Gran % (Auto) (0-0.5) % Neut % (Auto) (45.5-73.1) % Lymph % (Auto) (18.3-44.2) % [place] % (Auto) (2.6-8.5) % Eos % (Auto) (0-4.4) % Baso % (Auto) (0.2-1.2) % Lymph # (Auto) (0.9-3.2) K/mm3 [place] # (Auto) (0.1-0.6) K/mm3 Eos # (Auto) (0-0.3) K/mm3 Baso # (Auto) (0.0-0.1) K/mm3 Abs Immat Gran (auto) (0.00-0.031) K/mm3 Absolute Neuts (auto) (1.3-6.7) K/mm3 Absolute Nucleated RBC (0.0-0.012) K/mm3 Nucleated RBC % (0.0-0.2) % PT (11.1-14.7) Seconds INR APTT (22.3-36.8) Seconds Sodium (137-145) mmol/L Potassium (3.4-5.0) mmol/L Chloride (98-107) mmol/L Carbon Dioxide (22-30) mmol/L Anion Gap (4-12) mmol/L BUN (9-20) mg/dL Creatinine (0.7-1.3) mg/dL Estim Creat Clear Calc ml/min Estimated GFR (59 - ) Glucose (65-110) mg/dL POC Capillary Glucose 136 H 118 H (65-105) mg/dl Calcium (8.4-10.2) mg/dL Magnesium (1.6-2.3) mg/dL Total Bilirubin (0.2-1.3) mg/dL AST (17-59) U/L ALT (6-50) U/L Alkaline Phosphatase (38-126) U/L Total Creatine Kinase Pending Troponin I (0.000-0.034) ng/mL Total Protein (6.3-8.2) g/dL Albumin (3.5-5.1) g/dL Lipase (23-300) U/L Ethyl Alcohol (<10) mg/dL 12/12/24 Range/Units 20:39 WBC 12.5 H (4.5-10.0) K/mm3 RBC 5.14 (4.6-6.20) M/mm3 Hgb 12.6 L (14.0-18.0) g/dL Hct 41.3 L (42.0-52.0) % MCV 80.4 (80-100) fl MCH 24.5 L (26-34) pg MCHC 30.5 L (32-36) g/dl RDW 17.1 H (11.5-14.5) % Plt Count 291 (150-375) k/mm3 MPV 8.9 (7.4-10.4) fl Immature Gran % (Auto) 0.6 H (0-0.5) % Neut % (Auto) 79.8 H (45.5-73.1) % Lymph % (Auto) 11.7 L (18.3-44.2) % [place] % (Auto) 6.1 (2.6-8.5) % Eos % (Auto) 1.4 (0-4.4) % Baso % (Auto) 0.4 (0.2-1.2) % Lymph # (Auto) 1.47 (0.9-3.2) K/mm3 [place] # (Auto) 0.8 H (0.1-0.6) K/mm3 Eos # (Auto) 0.2 (0-0.3) K/mm3 Baso # (Auto) 0.1 (0.0-0.1) K/mm3 Abs Immat Gran (auto) 0.08 H (0.00-0.031) K/mm3 Absolute Neuts (auto) 10.0 H (1.3-6.7) K/mm3 Absolute Nucleated RBC 0.000 (0.0-0.012) K/mm3 Nucleated RBC % 0.0 (0.0-0.2) % PT 13.7 (11.1-14.7) Seconds INR 1.1 APTT 33.1 (22.3-36.8) Seconds Sodium 137 (137-145) mmol/L Potassium 4.7 (3.4-5.0) mmol/L Chloride 103 (98-107) mmol/L Carbon Dioxide 26 (22-30) mmol/L Anion Gap 8 (4-12) mmol/L BUN 58 H D (9-20) mg/dL Creatinine 3.20 H (0.7-1.3) mg/dL Estim Creat Clear Calc 40 ml/min Estimated GFR 21 L (59 - ) Glucose 121 H (65-110) mg/dL POC Capillary Glucose (65-105) mg/dl Calcium 8.7 (8.4-10.2) mg/dL Magnesium 2.3 (1.6-2.3) mg/dL Total Bilirubin 0.3 (0.2-1.3) mg/dL AST 28 (17-59) U/L ALT 21 (6-50) U/L Alkaline Phosphatase 79 (38-126) U/L Total Creatine Kinase Troponin I < 0.012 (0.000-0.034) ng/mL Total Protein 7.2 (6.3-8.2) g/dL Albumin 3.8 (3.5-5.1) g/dL Lipase 113 (23-300) U/L Ethyl Alcohol < 10 (<10) mg/dL Discharge Plan Discharge Clinical Impression: Acute kidney injury, Muscle spasm Patient Disposition: Left Against Medical Advice Condition: Stable Instructions: Acute Kidney Injury (DC), Muscle Spasm (ED) Additional Instructions: You were recommended hospital admission for IV fluids given your acute kidney injury with an elevated creatinine of 3.2, however, you declined. He understands the risks including worsening kidney function leading to kidney failure. Your instructed to follow-up with your primary care physician within the next 3-5 days to have your blood work recheck, specifically your kidney function and to increase your water intake throughout the day to prevent worsening kidney injury. Return to the ED if any new or worsening symptoms develop. Patient Language: Swedish Prescriptions: No Action doxycycline hyclate 100 mg tablet 100 mg PO DAILY Qty: 14 0RF cephalexin 500 mg capsule 500 mg PO Q6H Qty: 28 0RF hydrocodone-acetaminophen 10-325 mg tablet 1 tablet PO Q6H PRN (Reason: pain) Qty: 14 0RF Follow-up/Referrals: Fito Cuevas DO [Physician, Family Practice] - 3 Days UNKNOWN,DOCTOR [Primary Care Provider] - 3 Days Time of Disposition: 21:42
[2024-12-12] MEDS: SODIUM CHLORIDE 0.9% IV 1,000 ML 999 ML IV CONT ×2 (21:39→22:05)
[2024-12-12 21:47] LABS: Creatine Kinase 719 U/L (55-170)
== END 2024-12-12 23:27 | disposition left against medical advice (07) ==
PROVIDERS: Emergency Medicine; Emergency Provider Emergency Medicine
DX: M62.838 Other muscle spasm (principal); N17.9 Acute kidney failure, unspecified; I10 Essential (primary) hypertension; E11.9 Type 2 diabetes mellitus without complications; G47.30 Sleep apnea, unspecified; G89.4 Chronic pain syndrome; F17.290 Nicotine dependence, other tobacco product, uncomplicated; R94.31 Abnormal electrocardiogram [ECG] [EKG]
CPT/HCPCS: 36415; 70450; 71045; 80053; 82077; 82550; 82948; 83690; 83735; 84484; 85025; 85610; 85730; 93005; 96360; 99284; J7030